=== PATIENT | female | born 1980 | race Caucasian/White ===

== ENCOUNTER 2022-03-10 19:01 | Emergency (ER) | payer MEDICAID, OTHER ==
[~2022-03-10] VITALS: Ht 162.6 cm; Wt 70.0 kg
[2022-03-10 19:14] VITALS: BP 139/88
[2022-03-10 21:13] LABS: Urine Bacteria FEW /hpf (None Seen); Urine Blood 2+ /uL (Negative); Urine WBC 5 /hpf (0 - 5)
[2022-03-10 22:48] LABS: Basophils # (auto) 0.1 10 ^3/uL (0-0.2); Basophils % (auto) 0.8 % (0.0-2.0); Eosinophils # (auto) 0.1 10 ^3/uL (0-0.8); Eosinophils % (auto) 0.9 % (0.0-7.0); Hemoglobin 15.9 g/dL (12.2-16.2); Lymphocytes # (auto) 2.5 10 ^3/uL (0.4-5.4); Mean Corpuscular Hemoglobin 31.3 pg (28.0-32.0); Mean Corpuscular Hgb Conc. 34.5 g/dL (32.0-36.0); Mean Corpuscular Volume 90.7 fL (80.0-100.0); Monocytes # (auto) 0.8 10 ^3/uL (0-1.3); Monocytes % (auto) 7.4 % (0.0-12.0); Neutrophils # (auto) 7.4 10 ^3/uL (1.6-8.6); Neutrophils % (auto) 67.9 % (37.0-80.0); Red Blood Cells 5.08 10^6/uL (4.0-5.20); Red Cell Distribution Width 12.7 % (11.8-14.3); White Blood Cell 10.8 10^3/uL (4.4-10.8)
[2022-03-10 23:13] LABS: BUN/Creatinine Ratio 15.5; Calcium 9.3 mg/dL (8.5-10.1); Potassium 3.9 mmol/L (3.5-5.1); Total Protein 6.9 g/dL (6.4-8.2)
[2022-03-10 23:18] LABS: Salicylate 4.9 mg/dL (2.8-20.0)
[2022-03-10 23:22] LABS: Acetaminophen < 2.0 ug/mL (10-30)
[2022-03-10 23:24] LABS: Bilirubin, Total 0.8 mg/dL (0.2-1.0)
== END 2022-03-11 15:07 | disposition left against medical advice (07) ==
LOC: ER 19:03
DX: F31.9 Bipolar disorder, unspecified (principal); F06.2 Psychotic disorder with delusions due to known physiological condition; R94.31 Abnormal electrocardiogram [ECG] [EKG]; Z20.822 Contact with and (suspected) exposure to COVID-19
CPT/HCPCS: 36415; 71045; 80053; 80329; 81001; 81025; 84484; 85025; 87426; 93005

== ENCOUNTER 2022-03-16 00:48 | Emergency (ER) | payer MEDICAID ==
[~2022-03-16] VITALS: Ht 162.6 cm; Wt 70.0 kg
[2022-03-16 01:04] VITALS: BP 124/87
[2022-03-16 02:33] LABS: Basophils # (auto) 0.2 10 ^3/uL (0-0.2); Basophils % (auto) 2.3 % (0.0-2.0); Eosinophils # (auto) 0 10 ^3/uL (0-0.8); Eosinophils % (auto) 0.6 % (0.0-7.0); Hematocrit 45.7 % (36.0-46.0); Hemoglobin 15.7 g/dL (12.2-16.2); Lymphocytes # (auto) 1.4 10 ^3/uL (0.4-5.4); Mean Corpuscular Hemoglobin 31.5 pg (28.0-32.0); Mean Corpuscular Hgb Conc. 34.4 g/dL (32.0-36.0); Mean Corpuscular Volume 91.4 fL (80.0-100.0); Monocytes # (auto) 0.5 10 ^3/uL (0-1.3); Monocytes % (auto) 6.6 % (0.0-12.0); Neutrophils # (auto) 5.4 10 ^3/uL (1.6-8.6); Neutrophils % (auto) 71.5 % (37.0-80.0); Nucleated Red Blood Cells % 0.1 %; Red Cell Distribution Width 12.9 % (11.8-14.3); White Blood Cell 7.5 10^3/uL (4.4-10.8)
[2022-03-16 02:57] LABS: Albumin 3.9 g/dL (3.4-5.0); BUN/Creatinine Ratio 15.5; Calcium 9.1 mg/dL (8.5-10.1); Potassium 4.3 mmol/L (3.5-5.1)
[2022-03-16 03:00] LABS: Bilirubin, Total 0.6 mg/dL (0.2-1.0); Total Protein 6.7 g/dL (6.4-8.2)
== END 2022-03-16 08:01 | disposition left against medical advice (07) ==
LOC: ER 00:48 → EDBD 00:48 → ER 08:01
DX: R10.9 Unspecified abdominal pain (principal); Z53.21 Procedure and treatment not carried out due to patient leaving prior to being seen by health care provider
CPT/HCPCS: 36415; 80053; 83690; 84702; 85025; 93005